=== PATIENT | male | born 1945 | race Caucasian/White ===

== ENCOUNTER 2021-10-10 01:46 | Inpatient (IN) ==
[2021-10-10 02:40] LABS: Basophils % 0.2 %; Eosinophils % 0.1 %; Hematocrit 33.2 % (37.5-50.1); Hemoglobin 11.2 g/dL (12.9-16.9); Immature Granulocytes % 0.7 % (0-4); Lymphocytes # 1.1 K/mcL (0.6-4.6); Lymphocytes % 6.6 %; Mean Corpuscular HGB Conc 33.7 g/dL (31.6-35.5); Mean Corpuscular Hemoglobin 30.9 pg (28.0-33.3); Mean Corpuscular Volume 91.7 fL (83.0-100.0); Mean Platelet Volume 9.9 fL (9.4-12.4); Monocytes % 12.6 %; Neutrophils # 12.7 K/mcL (1.6-8.9); Platelet Count 175 K/mcL (140-400); Red Blood Count 3.62 M/mcL (4.19-5.50); Red Cell Distribution Width 11.9 % (11.5-14.5); Segmented Neutrophils % 79.8 %
[2021-10-10 02:46] LABS: Prothrombin Time 11.1 Seconds (9.4-12.1)
[2021-10-10 02:59] LABS: BUN/Creatinine Ratio 24 (6-26); Blood Urea Nitrogen 27 mg/dL (8-23); Calcium 8.7 mg/dL (8.6-10.3); Carbon Dioxide 26 mEq/L (23-29); Chloride 94 mEq/L (98-107); Glucose 292 mg/dL (70-105); Osmolality,Calculated 282 (280-300); Sodium 128 mEq/L (136-145); eGFR For African Americans > 60 (> 60); eGFR For Non-African Americans > 60 (> 60)
[2021-10-10] MEDS ORDERED: Isovue-370 500 ML BOTTLE IVP ONE (03:34)
[2021-10-10 06:21] LABS: Alanine Aminotransferase 28 Units/L (7-52); Albumin 3.5 g/dL (3.5-5.7); Albumin/Globulin Ratio 1.4 (1.1-2.2); Alkaline Phosphatase 81 Units/L (34-104); Aspartate Amino Transferase 49 Units/L (13-39); Bilirubin,Direct 0.1 mg/dL (0.0-0.2); Bilirubin,Indirect 0.6 mg/dL (0.0-1.0); Bilirubin,Total 0.7 mg/dL (0.3-1.0); Globulin 2.5 g/dL (2.4-3.5); Lipase 25 Units/L (11-82)
[2021-10-10] MEDS ORDERED: 0.9 % Sodium Chloride 1,000 ML IVC ONE (09:35)
[2021-10-10] MEDS ORDERED: Acetaminophen 325 MG TABLET PO PRN (10:44)
[2021-10-10] MEDS ORDERED: Ondansetron 4 MG/2 ML VIAL IVP PRN (10:44)
[2021-10-10] MEDS: 0.9 % Sodium Chloride 1,000 ML IVC SCH (11:37)
[2021-10-10] MEDS: Insulin DETEMIR 100 UNIT/ML X5UNITS SUBQ SCH (15:05)
[2021-10-10] MEDS ORDERED: *HR* FentaNYL (PF) 100 MCG/2 ML VIAL ONE (16:34)
[2021-10-10] MEDS ORDERED: *HR* Propofol 200 MG/20 ML VIAL IVP ONE (16:34)
[2021-10-10] MEDS: *HR* LORazepam 1 MG TABLET PO SCH ×2 (16:37→22:23)
[2021-10-10] MEDS: Pregabalin 75 MG CAPSULE PO SCH ×2 (16:37→22:21)
[2021-10-10] MEDS ORDERED: *HR* Rocuronium Bromide 50 MG/5 ML VIAL ONE (16:48)
[2021-10-10] MEDS ORDERED: Lidocaine -MPF 2% 5 ML VIAL ONE (16:48)
[2021-10-10] MEDS ORDERED: Lidocaine HCL 4 ML Topical Solution (Laryng-O-Jet Kit Sterile Pak) TP ONE (16:48)
[2021-10-10] MEDS ORDERED: *HR* Succinylcholine 200 MG/10 ML VIAL IVP ONE (16:48)
[2021-10-10] MEDS ORDERED: Ondansetron 4 MG/2 ML VIAL ONE (16:48)
[2021-10-10] MEDS ORDERED: risperiDONE 1 MG TABLET PO SCH (21:00)
[2021-10-10] MEDS: haloperidoL 5 MG TABLET PO SCH (22:23)
[2021-10-10] MEDS: Sennosides/Docusate Sodium TABLET PO SCH (22:24)
[2021-10-10] MEDS ORDERED: RISPERIDONE PO SCH (22:30)
[2021-10-11] MEDS: 0.9 % Sodium Chloride 1,000 ML IVC SCH ×2 (01:52→15:15)
[2021-10-11 06:49] LABS: Hematocrit 30.8 % (37.5-50.1); Hemoglobin 10.4 g/dL (12.9-16.9); Mean Corpuscular HGB Conc 33.8 g/dL (31.6-35.5); Mean Corpuscular Hemoglobin 31.7 pg (28.0-33.3); Mean Corpuscular Volume 93.9 fL (83.0-100.0); Mean Platelet Volume 9.9 fL (9.4-12.4); Platelet Count 177 K/mcL (140-400); Red Blood Count 3.28 M/mcL (4.19-5.50); Red Cell Distribution Width 11.9 % (11.5-14.5)
[2021-10-11 07:07] LABS: Alanine Aminotransferase 26 Units/L (7-52); Albumin 3.2 g/dL (3.5-5.7); Albumin/Globulin Ratio 1.3 (1.1-2.2); Alkaline Phosphatase 79 Units/L (34-104); Aspartate Amino Transferase 36 Units/L (13-39); BUN/Creatinine Ratio 26 (6-26); Bilirubin,Direct 0.2 mg/dL (0.0-0.2); Bilirubin,Indirect 0.3 mg/dL (0.0-1.0); Bilirubin,Total 0.5 mg/dL (0.3-1.0); Blood Urea Nitrogen 26 mg/dL (8-23); Carbon Dioxide 19 mEq/L (23-29); Chloride 101 mEq/L (98-107); Globulin 2.4 g/dL (2.4-3.5); Glucose 294 mg/dL (70-105); Magnesium 1.9 mg/dL (1.6-2.6); Osmolality,Calculated 290 (280-300); Phosphorous 3.2 mg/dL (2.7-4.5); Potassium 4.7 mEq/L (3.5-5.1); Sodium 132 mEq/L (136-145); Total Protein 5.6 g/dL (6.4-8.9); eGFR For African Americans > 60 (> 60); eGFR For Non-African Americans > 60 (> 60)
[2021-10-11] MEDS: polyethylene glycoL 3350 17 GM POWD.PACK PO SCH ×2 (07:58→11:11)
[2021-10-11] MEDS: haloperidoL 5 MG TABLET PO SCH ×2 (08:12→21:06)
[2021-10-11] MEDS: *HR* LORazepam 1 MG TABLET PO SCH ×2 (08:12→21:05)
[2021-10-11] MEDS: Sennosides/Docusate Sodium TABLET PO SCH ×2 (08:13→21:06)
[2021-10-11] MEDS: Insulin DETEMIR 100 UNIT/ML X5UNITS SUBQ SCH (08:13)
[2021-10-11] MEDS: Pregabalin 75 MG CAPSULE PO SCH ×2 (08:13→21:06)
[2021-10-11] MEDS ORDERED: Famotidine 20 MG TABLET PO SCH (09:00)
[2021-10-11] MEDS ORDERED: amLODIPine 5 MG TABLET PO SCH (09:00)
[2021-10-11] MEDS ORDERED: Venlafaxine XR (24 HR) 150 MG CAP.ER.24H PO SCH (09:00)
[2021-10-11] MEDS ORDERED: Aspirin Enteric Coated 81 MG Tablet PO SCH (09:00)
[2021-10-11] MEDS ORDERED: Ondansetron 4 MG/2 ML VIAL IVP PRN ×2 (09:36→15:36)
[2021-10-11] MEDS ORDERED: *HR* OxyCODONE Immed Rel 5 MG TABLET PO PRN ×2 (09:36→15:36)
[2021-10-11] MEDS ORDERED: Promethazine 6.25 MG in Water for inj. (sterile) 20 ML IVPB PRN ×2 (09:36→15:36)
[2021-10-11] MEDS ORDERED: *HR* FentaNYL (PF) 100 MCG/2 ML VIAL ONE ×2 (10:24→11:41)
[2021-10-11] MEDS ORDERED: *HR* Propofol 200 MG/20 ML VIAL IVP ONE (10:24)
[2021-10-11] MEDS ORDERED: Lidocaine HCL 4 ML Topical Solution (Laryng-O-Jet Kit Sterile Pak) TP ONE (10:30)
[2021-10-11] MEDS ORDERED: Lidocaine -MPF 2% 5 ML VIAL ONE (10:30)
[2021-10-11] MEDS ORDERED: Ondansetron 4 MG/2 ML VIAL ONE (10:30)
[2021-10-11] MEDS ORDERED: *HR* Rocuronium Bromide 50 MG/5 ML VIAL ONE (10:30)
[2021-10-11] MEDS ORDERED: Sugammadex Sodium 200 MG/2 ML VIAL IV ONE (11:33)
[2021-10-11] MEDS ORDERED: Isovue-300 50ML VIAL ONE ×2 (11:51→12:19)
[2021-10-11] MEDS: *HR* HYDROmorphone PF 0.5 MG/0.5 ML SYRINGE IVP PRN ×2 (13:39→13:50)
[2021-10-11] MEDS ORDERED: Tetracaine/Benzocaine/Butamben 1 SPRAY AEROSOL MM ONE (15:36)
[2021-10-11] MEDS ORDERED: *HR* HYDROmorphone PF 0.5 MG/0.5 ML SYRINGE IVP PRN (15:36)
[2021-10-11] MEDS ORDERED: *HR* LORazepam 2 MG/ML VIAL IVP ONE (15:37)
[2021-10-11] MEDS: RISPERIDONE PO SCH (21:04)
[2021-10-11] MEDS: Acetaminophen 325 MG TABLET PO PRN (21:15)
[2021-10-11] MEDS ORDERED: Acetaminophen IV 1,000 MG/100 ML BAG IVPB ONE (23:03)
[2021-10-12] MEDS: 0.9 % Sodium Chloride 1,000 ML IVC SCH ×3 (01:21→19:58)
[2021-10-12] MEDS: polyethylene glycoL 3350 17 GM POWD.PACK PO SCH ×3 (01:23→19:59)
[2021-10-12 05:48] LABS: Hematocrit 30.2 % (37.5-50.1); Hemoglobin 10.2 g/dL (12.9-16.9); Mean Corpuscular HGB Conc 33.8 g/dL (31.6-35.5); Mean Corpuscular Hemoglobin 31.8 pg (28.0-33.3); Mean Corpuscular Volume 94.1 fL (83.0-100.0); Mean Platelet Volume 9.9 fL (9.4-12.4); Platelet Count 203 K/mcL (140-400); Red Blood Count 3.21 M/mcL (4.19-5.50); Red Cell Distribution Width 11.9 % (11.5-14.5); White Blood Count 12.8 K/mcL (4.3-11.1)
[2021-10-12 06:08] LABS: Alanine Aminotransferase 30 Units/L (7-52); Albumin/Globulin Ratio 1.3 (1.1-2.2); Alkaline Phosphatase 72 Units/L (34-104); Aspartate Amino Transferase 42 Units/L (13-39); BUN/Creatinine Ratio 25 (6-26); Bilirubin,Direct 0.1 mg/dL (0.0-0.2); Bilirubin,Indirect 0.3 mg/dL (0.0-1.0); Bilirubin,Total 0.4 mg/dL (0.3-1.0); Blood Urea Nitrogen 26 mg/dL (8-23); Calcium 8.4 mg/dL (8.6-10.3); Carbon Dioxide 27 mEq/L (23-29); Chloride 104 mEq/L (98-107); Globulin 2.4 g/dL (2.4-3.5); Glucose 208 mg/dL (70-105); Osmolality,Calculated 293 (280-300); Potassium 4.3 mEq/L (3.5-5.1); Sodium 136 mEq/L (136-145); Total Protein 5.4 g/dL (6.4-8.9); eGFR For African Americans > 60 (> 60); eGFR For Non-African Americans > 60 (> 60)
[2021-10-12] MEDS ORDERED: *HR* Metoprolol 5 MG/5 ML VIAL IVP PRN (07:28)
[2021-10-12] MEDS ORDERED: Famotidine 20 MG TABLET PO SCH (09:00)
[2021-10-12] MEDS: Sennosides/Docusate Sodium TABLET PO SCH ×2 (10:17→20:00)
[2021-10-12] MEDS: Venlafaxine XR (24 HR) 150 MG CAP.ER.24H PO SCH (10:17)
[2021-10-12] MEDS: amLODIPine 5 MG TABLET PO SCH (10:17)
[2021-10-12] MEDS: Pregabalin 75 MG CAPSULE PO SCH ×3 (10:18→20:00)
[2021-10-12] MEDS: Aspirin Enteric Coated 81 MG Tablet PO SCH (10:18)
[2021-10-12] MEDS: *HR* LORazepam 1 MG TABLET PO SCH ×3 (10:18→20:00)
[2021-10-12] MEDS: haloperidoL 5 MG TABLET PO SCH ×2 (10:20→20:00)
[2021-10-12] MEDS: Insulin DETEMIR 100 UNIT/ML X5UNITS SUBQ SCH (10:46)
[2021-10-12] MEDS: Pantoprazole 40 MG VIAL IVP SCH ×2 (10:48→17:51)
[2021-10-12] MEDS: Piperacillin/Tazobactam 3.375 GM in 0.9 % Sodium Chloride Mini Bag 100 ML IVPB SCH ×2 (14:16→22:24)
[2021-10-12] MEDS ORDERED: Dextrose Gel 15 GM/37.5 ML TUBE PO PRN ×2 (14:26)
[2021-10-12] MEDS: *HR* HYDROcodone/Acet 5/325 mg TABLET PO PRN (14:57)
[2021-10-12] MEDS: RISPERIDONE PO SCH (19:59)
[2021-10-12] MEDS: Acetaminophen 325 MG TABLET PO PRN (20:03)
[2021-10-12] MEDS: Insulin LISPRO 300 UNITS/3 ML VIAL SUBQ SCH (22:23)
[2021-10-13] MEDS: *HR* Dextrose 50 % in Water (Syg) 50 ML SYRINGE IVP PRN
[2021-10-13] MEDS: D5% in Water 1,000 ML IVC PRN (01:24)
[2021-10-13] MEDS: Insulin LISPRO 300 UNITS/3 ML VIAL SUBQ SCH ×2 (01:26→05:16)
[2021-10-13] MEDS: *HR* HYDROcodone/Acet 5/325 mg TABLET PO PRN (01:40)
[2021-10-13] MEDS: Piperacillin/Tazobactam 3.375 GM in 0.9 % Sodium Chloride Mini Bag 100 ML IVPB SCH ×3 (05:11→21:49)
[2021-10-13] MEDS: Pantoprazole 40 MG VIAL IVP SCH ×2 (05:12→17:56)
[2021-10-13 09:14] LABS: Basophils % 0.2 %; Eosinophils # 0.1 K/mcL (0.0-0.6); Eosinophils % 1.1 %; Hematocrit 27.6 % (37.5-50.1); Hemoglobin 9.1 g/dL (12.9-16.9); Immature Granulocytes % 0.5 % (0-4); Lymphocytes # 1.2 K/mcL (0.6-4.6); Mean Corpuscular Hemoglobin 31.5 pg (28.0-33.3); Mean Corpuscular Volume 95.5 fL (83.0-100.0); Mean Platelet Volume 9.8 fL (9.4-12.4); Monocytes % 11.3 %; Neutrophils # 6.2 K/mcL (1.6-8.9); Platelet Count 177 K/mcL (140-400); Red Blood Count 2.89 M/mcL (4.19-5.50); Red Cell Distribution Width 11.9 % (11.5-14.5); Segmented Neutrophils % 72.9 %; White Blood Count 8.5 K/mcL (4.3-11.1)
[2021-10-13 09:22] LABS: Alanine Aminotransferase 23 Units/L (7-52); Albumin 2.7 g/dL (3.5-5.7); Albumin/Globulin Ratio 1.2 (1.1-2.2); Alkaline Phosphatase 59 Units/L (34-104); Aspartate Amino Transferase 28 Units/L (13-39); BUN/Creatinine Ratio 18 (6-26); Bilirubin,Total 0.6 mg/dL (0.3-1.0); Blood Urea Nitrogen 15 mg/dL (8-23); Calcium 7.8 mg/dL (8.6-10.3); Carbon Dioxide 27 mEq/L (23-29); Chloride 100 mEq/L (98-107); Globulin 2.2 g/dL (2.4-3.5); Glucose 196 mg/dL (70-105); Osmolality,Calculated 282 (280-300); Potassium 3.6 mEq/L (3.5-5.1); Sodium 133 mEq/L (136-145); Total Protein 4.9 g/dL (6.4-8.9); eGFR For African Americans > 60 (> 60); eGFR For Non-African Americans > 60 (> 60)
[2021-10-13] MEDS: Sennosides/Docusate Sodium TABLET PO SCH ×2 (10:29→21:49)
[2021-10-13] MEDS: polyethylene glycoL 3350 17 GM POWD.PACK PO SCH ×2 (10:29→21:48)
[2021-10-13] MEDS: Venlafaxine XR (24 HR) 150 MG CAP.ER.24H PO SCH (10:29)
[2021-10-13] MEDS: amLODIPine 5 MG TABLET PO SCH (10:30)
[2021-10-13] MEDS: *HR* LORazepam 1 MG TABLET PO SCH ×3 (10:30→21:48)
[2021-10-13] MEDS: Aspirin Enteric Coated 81 MG Tablet PO SCH (10:30)
[2021-10-13] MEDS: Pregabalin 75 MG CAPSULE PO SCH ×3 (10:30→21:48)
[2021-10-13] MEDS: haloperidoL 5 MG TABLET PO SCH ×2 (10:33→21:48)
[2021-10-13] MEDS: Insulin DETEMIR 100 UNIT/ML X5UNITS SUBQ SCH (10:34)
[2021-10-13] MEDS: 0.9 % Sodium Chloride 1,000 ML IVC SCH (11:58)
[2021-10-13] MEDS: RISPERIDONE PO SCH (21:49)
[2021-10-14] MEDS: D5% in Water 1,000 ML IVC PRN (00:11)
[2021-10-14] MEDS: *HR* Dextrose 50 % in Water (Syg) 50 ML SYRINGE IVP PRN (00:13)
[2021-10-14] MEDS: 0.9 % Sodium Chloride 1,000 ML IVC SCH ×4 (00:27→15:15)
[2021-10-14] MEDS: Piperacillin/Tazobactam 3.375 GM in 0.9 % Sodium Chloride Mini Bag 100 ML IVPB SCH ×3 (05:23→20:56)
[2021-10-14] MEDS: Pantoprazole 40 MG VIAL IVP SCH ×2 (05:23→17:42)
[2021-10-14] MEDS: amLODIPine 5 MG TABLET PO SCH (08:20)
[2021-10-14] MEDS: Aspirin Enteric Coated 81 MG Tablet PO SCH (08:20)
[2021-10-14] MEDS: *HR* LORazepam 1 MG TABLET PO SCH ×3 (08:20→20:59)
[2021-10-14] MEDS: polyethylene glycoL 3350 17 GM POWD.PACK PO SCH ×2 (08:21→20:57)
[2021-10-14] MEDS: haloperidoL 5 MG TABLET PO SCH ×2 (08:21→20:58)
[2021-10-14] MEDS: Sennosides/Docusate Sodium TABLET PO SCH ×2 (08:21→20:58)
[2021-10-14] MEDS: Pregabalin 75 MG CAPSULE PO SCH ×3 (08:21→20:59)
[2021-10-14] MEDS: Insulin DETEMIR 100 UNIT/ML X5UNITS SUBQ SCH (08:22)
[2021-10-14] MEDS: Venlafaxine XR (24 HR) 150 MG CAP.ER.24H PO SCH (08:22)
[2021-10-14 09:22] LABS: Alanine Aminotransferase 22 Units/L (7-52); Albumin/Globulin Ratio 1.3 (1.1-2.2); Alkaline Phosphatase 70 Units/L (34-104); Aspartate Amino Transferase 29 Units/L (13-39); BUN/Creatinine Ratio 13 (6-26); Bilirubin,Total 0.8 mg/dL (0.3-1.0); Blood Urea Nitrogen 10 mg/dL (8-23); Carbon Dioxide 25 mEq/L (23-29); Chloride 93 mEq/L (98-107); Globulin 2.3 g/dL (2.4-3.5); Glucose 226 mg/dL (70-105); Osmolality,Calculated 274 (280-300); Potassium 3.3 mEq/L (3.5-5.1); Sodium 129 mEq/L (136-145); Total Protein 5.3 g/dL (6.4-8.9); eGFR For African Americans > 60 (> 60); eGFR For Non-African Americans > 60 (> 60)
[2021-10-14 11:10] LABS: Basophils % 0.3 %; Eosinophils # 0.1 K/mcL (0.0-0.6); Eosinophils % 0.8 %; Hematocrit 31.4 % (37.5-50.1); Hemoglobin 10.6 g/dL (12.9-16.9); Immature Granulocytes % 0.5 % (0-4); Lymphocytes # 0.9 K/mcL (0.6-4.6); Lymphocytes % 7.9 %; Mean Corpuscular HGB Conc 33.8 g/dL (31.6-35.5); Mean Corpuscular Hemoglobin 31.2 pg (28.0-33.3); Mean Corpuscular Volume 92.4 fL (83.0-100.0); Mean Platelet Volume 9.5 fL (9.4-12.4); Monocytes # 1.2 K/mcL (0.0-1.3); Monocytes % 10.4 %; Platelet Count 246 K/mcL (140-400); Red Cell Distribution Width 11.4 % (11.5-14.5); Segmented Neutrophils % 80.1 %; White Blood Count 11.2 K/mcL (4.3-11.1)
[2021-10-14] MEDS: RISPERIDONE PO SCH (20:58)
[2021-10-15 06:31] LABS: Basophils % 0.3 %; Eosinophils # 0.1 K/mcL (0.0-0.6); Eosinophils % 1.1 %; Hematocrit 31.2 % (37.5-50.1); Hemoglobin 10.6 g/dL (12.9-16.9); Immature Granulocytes % 0.7 % (0-4); Lymphocytes # 1.3 K/mcL (0.6-4.6); Lymphocytes % 12.9 %; Mean Corpuscular Hemoglobin 31.4 pg (28.0-33.3); Mean Corpuscular Volume 92.3 fL (83.0-100.0); Mean Platelet Volume 9.4 fL (9.4-12.4); Monocytes # 1.2 K/mcL (0.0-1.3); Monocytes % 11.2 %; Neutrophils # 7.6 K/mcL (1.6-8.9); Platelet Count 296 K/mcL (140-400); Red Blood Count 3.38 M/mcL (4.19-5.50); Red Cell Distribution Width 11.7 % (11.5-14.5); Segmented Neutrophils % 73.8 %; White Blood Count 10.3 K/mcL (4.3-11.1)
[2021-10-15 06:51] LABS: Alanine Aminotransferase 21 Units/L (7-52); Albumin 2.8 g/dL (3.5-5.7); Albumin/Globulin Ratio 1.1 (1.1-2.2); Alkaline Phosphatase 73 Units/L (34-104); Aspartate Amino Transferase 24 Units/L (13-39); BUN/Creatinine Ratio 13 (6-26); Bilirubin,Total 0.7 mg/dL (0.3-1.0); Blood Urea Nitrogen 12 mg/dL (8-23); Calcium 8.2 mg/dL (8.6-10.3); Carbon Dioxide 23 mEq/L (23-29); Chloride 102 mEq/L (98-107); Globulin 2.5 g/dL (2.4-3.5); Glucose 168 mg/dL (70-105); Osmolality,Calculated 276 (280-300); Potassium 3.3 mEq/L (3.5-5.1); Sodium 131 mEq/L (136-145); Total Protein 5.3 g/dL (6.4-8.9); eGFR For African Americans > 60 (> 60); eGFR For Non-African Americans > 60 (> 60)
[2021-10-15] MEDS: Piperacillin/Tazobactam 3.375 GM in 0.9 % Sodium Chloride Mini Bag 100 ML IVPB SCH ×3 (07:00→21:41)
[2021-10-15] MEDS: Insulin DETEMIR 100 UNIT/ML X5UNITS SUBQ SCH (09:00)
[2021-10-15] MEDS: *HR* LORazepam 1 MG TABLET PO SCH ×3 (09:49→21:38)
[2021-10-15] MEDS: Venlafaxine XR (24 HR) 150 MG CAP.ER.24H PO SCH (09:50)
[2021-10-15] MEDS: polyethylene glycoL 3350 17 GM POWD.PACK PO SCH ×2 (09:50→21:38)
[2021-10-15] MEDS: haloperidoL 5 MG TABLET PO SCH ×2 (09:50→21:40)
[2021-10-15] MEDS: Aspirin Enteric Coated 81 MG Tablet PO SCH (09:50)
[2021-10-15] MEDS: amLODIPine 5 MG TABLET PO SCH (09:50)
[2021-10-15] MEDS: Pregabalin 75 MG CAPSULE PO SCH ×3 (09:50→21:38)
[2021-10-15] MEDS: Sennosides/Docusate Sodium TABLET PO SCH ×2 (09:50→21:38)
[2021-10-15] MEDS: 0.9 % Sodium Chloride 1,000 ML IVC SCH ×2 (09:51→21:40)
[2021-10-15] MEDS: *HR* HYDROcodone/Acet 5/325 mg TABLET PO PRN ×2 (10:49→17:58)
[2021-10-15] MEDS: Pantoprazole 40 MG VIAL IVP SCH ×2 (15:32→17:12)
[2021-10-15] MEDS: Acetaminophen 325 MG TABLET PO PRN (15:35)
[2021-10-15] MEDS: RISPERIDONE PO SCH (21:40)
[2021-10-16] MEDS: Acetaminophen 325 MG TABLET PO PRN (03:50)
[2021-10-16] MEDS: 0.9 % Sodium Chloride 1,000 ML IVC SCH ×2 (05:44→08:55)
[2021-10-16] MEDS: Piperacillin/Tazobactam 3.375 GM in 0.9 % Sodium Chloride Mini Bag 100 ML IVPB SCH (05:44)
[2021-10-16] MEDS: Pantoprazole 40 MG VIAL IVP SCH (05:44)
[2021-10-16 08:42] LABS: Basophils % 0.3 %; Eosinophils # 0.2 K/mcL (0.0-0.6); Eosinophils % 3.4 %; Hematocrit 28.2 % (37.5-50.1); Hemoglobin 9.2 g/dL (12.9-16.9); Lymphocytes # 1.1 K/mcL (0.6-4.6); Lymphocytes % 16.9 %; Mean Corpuscular HGB Conc 32.6 g/dL (31.6-35.5); Mean Corpuscular Hemoglobin 30.7 pg (28.0-33.3); Mean Platelet Volume 9.2 fL (9.4-12.4); Monocytes # 0.8 K/mcL (0.0-1.3); Monocytes % 12.1 %; Neutrophils # 4.2 K/mcL (1.6-8.9); Platelet Count 250 K/mcL (140-400); Red Cell Distribution Width 11.9 % (11.5-14.5); Segmented Neutrophils % 66.3 %; White Blood Count 6.3 K/mcL (4.3-11.1)
[2021-10-16] MEDS: polyethylene glycoL 3350 17 GM POWD.PACK PO SCH (08:55)
[2021-10-16] MEDS: Aspirin Enteric Coated 81 MG Tablet PO SCH (08:55)
[2021-10-16] MEDS: Pregabalin 75 MG CAPSULE PO SCH (08:55)
[2021-10-16] MEDS: *HR* LORazepam 1 MG TABLET PO SCH (08:55)
[2021-10-16] MEDS: haloperidoL 5 MG TABLET PO SCH (08:55)
[2021-10-16] MEDS: amLODIPine 5 MG TABLET PO SCH (08:56)
[2021-10-16] MEDS: Sennosides/Docusate Sodium TABLET PO SCH (08:56)
[2021-10-16] MEDS: Venlafaxine XR (24 HR) 150 MG CAP.ER.24H PO SCH (08:56)
[2021-10-16 08:59] LABS: BUN/Creatinine Ratio 13 (6-26); Blood Urea Nitrogen 12 mg/dL (8-23); Calcium 7.8 mg/dL (8.6-10.3); Carbon Dioxide 30 mEq/L (23-29); Chloride 108 mEq/L (98-107); Glucose 196 mg/dL (70-105); Osmolality,Calculated 275 (280-300); Potassium 3.6 mEq/L (3.5-5.1); Sodium 130 mEq/L (136-145); eGFR For African Americans > 60 (> 60); eGFR For Non-African Americans > 60 (> 60)
[2021-10-16] MEDS: Insulin DETEMIR 100 UNIT/ML X5UNITS SUBQ SCH (08:59)
[2021-10-16 11:08] VITALS: BP 147/80; PULSE 87; TEMP 98.2; O2SAT 93
[2021-10-16] MEDS ORDERED: FLU Vac QV 21-22 (6Month+)/PF 0.5 ML SYRINGE IM ONE (12:39)
[2021-10-16 14:52] LABS: Influenza A PCR Negative (Negative); Influenza B PCR Negative (Negative); Resp. Syncytial Virus PCR Negative (Negative)
[2021-10-16 14:53] LABS: SARS-CoV-2 by PCR (In House) Negative (Negative)
== END 2021-10-16 15:37 | DRG 418 ==
LOC: 3ANU 01:46 → EMEROOARM 01:46 → 3ANU 15:31
PROVIDERS: ADMIT Internal Medicine; ATTEND Internal Medicine